=== PATIENT | female | born 1985 | race Caucasian/White ===

== ENCOUNTER 2020-05-18 18:18 | Inpatient (IN) | payer OTHER ==
[~2020-05-18] VITALS: Ht 170.2 cm; Wt 88.0 kg
[2020-05-18] MEDS ORDERED: OXYTOCIN/0.9 % SODIUM CHLORIDE 1,000 ML IV SCH (19:15)
[2020-05-18] MEDS ORDERED: LR 1,000 ML IV SCH (19:15)
[2020-05-18] MEDS ORDERED: LR 1,000 ML IV ONE (19:15)
[2020-05-18] MEDS ORDERED: NALBUPHINE HCL 10 MG/ML AMP IVP PRN (19:15)
[2020-05-18 19:41] LABS: BASOPHILS % (AUTO) 0.4 % (0.0-2.0); EOSINOPHILS # (AUTO) 0.1 K/uL (0.0-0.4); EOSINOPHILS % (AUTO) 1.1 % (0.0-4.0); HEMATOCRIT 38.5 % (36-48); LYMPHOCYTES % (AUTO) 28.2 % (20.5-51.5); MEAN CORPUSCULAR HEMOGLOBIN 30 pg (27-31); MEAN CORPUSCULAR HGB CONC 34 % (32-36); MEAN CORPUSCULAR VOLUME 90 fL (79.0-98.0); MONOCYTES # (AUTO) 0.9 K/uL (0.0-1.0); MONOCYTES % (AUTO) 8.4 % (1.7-9.3); NEUTROPHILS # (AUTO) 6.7 K/uL (1.8-7.7); NEUTROPHILS % (AUTO) 61.9 % (40.0-70.0); PLATELET COUNT (AUTO) 208 K/uL (130-430); RED BLOOD CELL COUNT(AUTO) 4.26 MIL/uL (4.2-6.2); WHITE BLOOD COUNT (AUTO) 10.8 K/uL (4.8-10.8)
[2020-05-18 19:56] VITALS: BP_SYST 145
[2020-05-19] MEDS: OXYTOCIN/0.9 % SODIUM CHLORIDE 1,000 ML IV SCH ×2 (03:05→18:00)
[2020-05-19] MEDS ORDERED: AMPICILLIN SODIUM 2 GM in NS 100 ML IV ONE (06:30)
[2020-05-19] MEDS ORDERED: CEFAZOLIN 2 GM IVPB PREMIX 50 ML IV ONE (06:30)
[2020-05-19] MEDS ORDERED: AMPICILLIN SODIUM 2 GM VIAL ONE (06:39)
[2020-05-19] MEDS ORDERED: ePHEDrine sulfate 50 MG/ML VIAL IVP ONE (08:30)
[2020-05-19] MEDS ORDERED: MORPHINE SULFATE 10MG/10ML PF AMP EP ONE (08:30)
[2020-05-19] MEDS ORDERED: LR 1,000 ML IV.SOLN IV ONE (08:30)
[2020-05-19] MEDS ORDERED: BUPIVACAINE /DEX PF 0.75% SPINAL 2 ML AMP INJ ONE (08:30)
[2020-05-19] MEDS ORDERED: NS IRRIG SOLN 1000 ML IR ONE (08:30)
[2020-05-19] MEDS ORDERED: fentaNYL CITRATE/PF 100 MCG/2 ML AMP IVP PRN ×2 (09:00)
[2020-05-19] MEDS ORDERED: KETOROLAC TROMETHAMINE 60 MG/2 ML VIAL IM PRN (09:00)
[2020-05-19] MEDS ORDERED: MORPHINE SULFATE 10MG/10ML PF AMP SP SCH (09:00)
[2020-05-19] MEDS ORDERED: NALOXONE HCL 0.4 MG/ML AMP (NARCAN) IVP PRN ×3 (09:00→09:30)
[2020-05-19] MEDS ORDERED: NALBUPHINE HCL 10 MG/ML AMP IVP PRN (09:00)
[2020-05-19] MEDS ORDERED: ONDANSETRON HCL 4 MG/2 ML VIAL IVP PRN (09:00)
[2020-05-19] MEDS ORDERED: DIPHENHYDRAMINE INJ 50 MG/ML VIAL IVP PRN (09:00)
[2020-05-19] MEDS ORDERED: SENNOSIDES/DOCUSATE SODIUM 1 TAB TABLET(SENOKOT-S) PO PRN (09:30)
[2020-05-19] MEDS ORDERED: MEASLES,MUMPS&RUBELLA VACC/PF 12500 UNIT/0.5 ML VIAL SUBQ PRN (09:30)
[2020-05-19] MEDS ORDERED: OXYCODONE/ACETAMINOPHEN 5-325 TABLET PO PRN (09:30)
[2020-05-19] MEDS ORDERED: LANOLIN 7 GM OINT. TP PRN (09:30)
[2020-05-19] MEDS ORDERED: DIPH-TET-PERTUS Vaccine 0.5 ML VIAL (ADACEL) I.M. PRN (09:30)
[2020-05-19] MEDS ORDERED: TEMAZEPAM 15 MG CAPSULE PO PRN (09:30)
[2020-05-19] MEDS ORDERED: HYDROcodone/ACETAMIN 5-325 MG TAB (NORCO/ VICODIN) PO PRN (09:30)
[2020-05-19] MEDS ORDERED: OXYCODONE/ACETAMINOPHEN *10*mg/325 mg TABLET PO PRN (09:30)
[2020-05-19] MEDS ORDERED: ANUSOL 1 EA SUPP.RECT (PREPARATION H) RC PRN (09:30)
[2020-05-19] MEDS ORDERED: LR 1,000 ML IV SCH (09:30)
[2020-05-19] MEDS ORDERED: RHO(D) IMMUNE GLOBULIN/MALTOSE 1500 UNITS/1.3 ML (WINHRO) IM PRN (09:30)
[2020-05-19] MEDS ORDERED: BISACODYL 10 MG/SUPPOSITORY RC PRN (09:30)
[2020-05-19 09:31] VITALS: BP_SYST 123
[2020-05-19] MEDS: CEFAZOLIN 1 GM IVPB PREMIX 50 ML IV SCH (18:06)
[2020-05-19] MEDS: KETOROLAC TROMETHAMINE 30 MG VIAL IVP SCH (18:06)
[2020-05-19] MEDS: SIMETHICONE 80 MG TAB.CHEW PO PRN (20:15)
[2020-05-19] MEDS: DOCUSATE SODIUM 100 MG CAPSULE PO PRN (20:15)
[2020-05-20] MEDS: KETOROLAC TROMETHAMINE 30 MG VIAL IVP SCH ×3 (00:05→11:57)
[2020-05-20] MEDS: SIMETHICONE 80 MG TAB.CHEW PO PRN ×3 (00:05→23:55)
[2020-05-20] MEDS: CEFAZOLIN 1 GM IVPB PREMIX 50 ML IV SCH ×2 (00:05→06:00)
[2020-05-20] MEDS: DOCUSATE SODIUM 100 MG CAPSULE PO PRN ×2 (03:05→23:55)
[2020-05-20 06:59] LABS: BASOPHILS % (AUTO) 0.2 % (0.0-2.0); EOSINOPHILS # (AUTO) 0.1 K/uL (0.0-0.4); EOSINOPHILS % (AUTO) 0.6 % (0.0-4.0); HEMATOCRIT 35.8 % (36-48); HEMOGLOBIN 11.9 g/dL (12.0-16.0); LYMPHOCYTES # (AUTO) 2.2 K/uL (1.0-5.5); MEAN CORPUSCULAR HEMOGLOBIN 31 pg (27-31); MEAN CORPUSCULAR HGB CONC 33 % (32-36); MEAN CORPUSCULAR VOLUME 92 fL (79.0-98.0); MONOCYTES % (AUTO) 8.8 % (1.7-9.3); NEUTROPHILS # (AUTO) 8.2 K/uL (1.8-7.7); NEUTROPHILS % (AUTO) 71.4 % (40.0-70.0); PLATELET COUNT (AUTO) 163 K/uL (130-430); RED CELL DISTRIBUTION WIDTH 14.3 % (9.0-15.0); WHITE BLOOD COUNT (AUTO) 11.4 K/uL (4.8-10.8)
[2020-05-20] MEDS ORDERED: IBUPROFEN 600 MG TABLET PO SCH (12:00)
[2020-05-20] MEDS: IBUPROFEN 600 MG TABLET PO SCH ×2 (17:35→23:54)
[2020-05-21] MEDS: IBUPROFEN 600 MG TABLET PO SCH (06:01)
[2020-05-21] MEDS: DOCUSATE SODIUM 100 MG CAPSULE PO PRN (06:02)
[2020-05-21] MEDS: SIMETHICONE 80 MG TAB.CHEW PO PRN (06:02)
== END 2020-05-21 10:45 | disposition home or self-care (01) | DRG 788 ==
LOC: SPU 18:18
PROVIDERS: ADMIT Specialist; ATTEND Specialist
PROC: 10D00Z1 Extraction of Products of Conception, Low, Open Approach (ICD-10-PCS; principal; 2020-05-19 08:30)
DX: O62.2 Other uterine inertia (principal); O76 Abnormality in fetal heart rate and rhythm complicating labor and delivery; O32.6XX0 Maternal care for compound presentation, not applicable or unspecified; Z20.822 Contact with and (suspected) exposure to COVID-19; O32.4XX0 Maternal care for high head at term, not applicable or unspecified; Z3A.39 39 weeks gestation of pregnancy; Z37.0 Single live birth
CPT/HCPCS: 36415; 85025; 86592; 86780; 86886; 86900; 86901; 88307; 90715; 94760; J0290; J0690; J1885; J2274; J2590; J3490; J7120